=== PATIENT | male | born 1955 | race Caucasian/White ===

== ENCOUNTER 2019-07-10 07:35 | Outpatient (CLI) | payer BC ==
--- NOTE | 2019-07-10 08:56 | CT ---
CT abdomen and pelvis with oral and IV contrast HISTORY: Gastric intestinal metaplasia. Peptic ulcer disease, unspecified COMPARISON: 08/10/2010 FINDINGS: The lung bases are clear. There is a 17 mm low-density lesion with probable posterior nodular enhance ment in the posterior segment of the right lobe of the liver. This is new since the last exam.The remainder of the liver demonstrates decreased attenuation compared to the spleen, consistent with fat ty infiltration. The patient is post cholecystectomy. The spleen, pancreas, adrenal glands and right kidney appear nor mal. There is a 3 mm nonobstructing left renal calculus. No free air, free fluid or lymphadenopathy seen in the abdomen or pelvis. The small bowel loops are not abnormally dilated. A normal-appearing a ppendix is present. There is colonic diverticulosis. There is thickening of the wall of the distal stomach. There are vascular calcifications without evidence of aneurysmal dilatation of the abdominal aorta. T here are degenerative changes in the spine. IMPRESSION: 1. Right liver lobe lesion. Correlation with technetium 99m labeled RBC scan is recommended to determ ine if this is a hemangioma. 2. Fatty liver 3. Nonobstructing 3 mm left renal calculus 4. Colonic diverticulosis 5. Gastric wall thickening.
[2019-07-10] MEDS ORDERED: Iopamidol 370 76% 100 ML VIAL ONE (17:12)
== END 2019-07-10 07:36 | disposition home or self-care (01) ==
LOC: CT 07:35
PROVIDERS: ATTEND Internal Medicine Gastroenterology
DX: K27.9 Peptic ulcer, site unspecified, unspecified as acute or chronic, without hemorrhage or perforation (principal); K31.89 Other diseases of stomach and duodenum; K76.9 Liver disease, unspecified; K76.0 Fatty (change of) liver, not elsewhere classified; N20.0 Calculus of kidney; K82.8 Other specified diseases of gallbladder; K57.30 Diverticulosis of large intestine without perforation or abscess without bleeding
CPT/HCPCS: 74177; Q9967

== ENCOUNTER 2019-07-15 12:45 | Outpatient (CLI) | payer BC ==
--- NOTE | 2019-07-15 14:29 | PET ---
EXAM: PET CT WITH ATTENUATION CORRECTION 07/15/19 HISTORY: Malignant neoplasm of the stomach. COMPARISON: None. TECHNIQUE: PET scan with CT attenuation correction is performed from the base of the brain to the proximal thigh s following the intravenous administration of 10.3 millicuries of [id number]. FINDINGS: HEAD AND NECK: No abnormal FDG localization. CHEST: No abnormal FDG localization. ABDOMEN AND PELVIS: There is increased FDG avidity along the distal body of the stomach. Based on the axial images, this increased FDG avidity appears to be within the lumen of the stomach. However, based upon the sagittal and coronal reformatted images, this increased FDG avidity appears to have a linear appearance and i nvolves the wall of the stomach. No evidence of extension beyond the serosal margin of the stomach. Maximum SUV is between 3.6 and 3.8. No additional areas of abnormal FDG localization in the abdomen or pelvis. OSSEOUS STRUCTURES: No abnormal FDG localization in the osseous structures. IMPRESSION: FDG avidity involving the distal body/antrum of the stomach. POS: KB
== END 2019-07-15 12:46 | disposition home or self-care (01) ==
LOC: PET 12:45
PROVIDERS: ATTEND Internal Medicine Gastroenterology
DX: C16.9 Malignant neoplasm of stomach, unspecified (principal); R93.3 Abnormal findings on diagnostic imaging of other parts of digestive tract; B96.81 Helicobacter pylori [H. pylori] as the cause of diseases classified elsewhere; Z86.010 Personal history of colon polyps
CPT/HCPCS: 78815; A9552

== ENCOUNTER 2021-02-26 16:14 | Emergency (ER) | payer BC ==
[2021-02-26] MEDS ORDERED: Fentanyl 100 MCG/2 ML VIAL ONE (18:21)
[2021-02-26] MEDS ORDERED: Boostrix 0.5 ML (Tdap) VIAL ONE (18:21)
[2021-02-26] MEDS ORDERED: Ondansetron PF 4 MG/2 ML Vial ONE (18:21)
[2021-02-26 18:26] LABS: #Monocytes 0.3 thou/uL (0.11-0.59); #Neutrophils 7.5 thou/uL (1.40-6.50); %Basophils 0.2 % (0.0-1.0); %Eosinophils 0.5 % (0.0-10.0); %Lymphocytes 11.6 % (21.0-51.0); %Monocytes 3.8 % (0.0-10.0); Hemoglobin 13.5 g/dL (14.0-18.0); Mean Corpuscular HGB CONC 32.4 g/dL (32.0-36.0); Mean Corpuscular Hemoglobin 31.3 pg (27.0-31.0); Mean Corpuscular Volume 96.6 fL (78.0-98.0); Mean Platelet Volume 9.5 fL (7.4-10.4); Platelet Count 212 thou/uL (130-400); RBC Distribution Width 12.6 % (11.5-14.5); Red Blood Cell (RBC) Count 4.31 mill/uL (4.70-6.10); White Blood Cell (WBC) Count 8.9 thou/uL (4.8-10.8)
[2021-02-26 18:33] LABS: PTT 36.5 sec (22.9-36.1); Prothrombin Time 13.3 sec (12.0-14.7)
[2021-02-26 18:52] LABS: ALT (SGPT) 12 U/L (8-55); AST (SGOT) 19 U/L (5-34); Albumin 3.9 g/dL (3.4-4.8); Alkaline Phosphatase 117 U/L (40-110); Anion Gap 13 mmol/L (10-20); BUN (Urea Nitrogen) 16 mg/dL (8.4-25.7); Bilirubin, Total 0.5 mg/dL (0.2-1.2); Calc. Creatinine Clearance 0 mL/min (70-130); Calcium 9.1 mg/dL (7.8-10.44); Carbon Dioxide 25 mmol/L (23-31); Chloride 109 mmol/L (98-107); Globulin 2.9 g/dL (2.4-3.5); Glucose 162 mg/dL (80-115); Potassium 4.1 mmol/L (3.5-5.1); Protein, Total 6.8 g/dL (5.8-8.1); Sodium 143 mmol/L (136-145)
[2021-02-26] MEDS ORDERED: Ketorolac Tromethamine 30 MG/ML VIAL ONE (20:29)
[2021-02-26] MEDS ORDERED: Morphine 4 MG/ML VIAL ONE (20:34)
== END 2021-02-26 21:28 | disposition short-term general hospital (02) ==
LOC: ERS 16:14
DX: S56.922A Laceration of unspecified muscles, fascia and tendons at forearm level, left arm, initial encounter (principal); E11.9 Type 2 diabetes mellitus without complications; I10 Essential (primary) hypertension; E78.5 Hyperlipidemia, unspecified; Z79.899 Other long term (current) drug therapy; W18.40XA Slipping, tripping and stumbling without falling, unspecified, initial encounter
CPT/HCPCS: 29125; 80053; 85025; 85610; 85730; 86850; 86900; 86901; 90471; 90715; 96365; 96375; J0690; J1885; J2270; J2405; J3010